=== PATIENT | male | born 1950 | race Caucasian/White ===

== ENCOUNTER 2017-04-17 07:22 | Day surgery (SDC) | payer OTHER ==
[~2017-04-17] VITALS: Ht 170.2 cm; Wt 97.1 kg
[~2017-04-17 07:22] MED LIST: LOVA40 PO
== END 2017-04-17 22:41 | disposition home or self-care (01) ==
LOC: ORSCMMR 07:22
PROVIDERS: Internal Medicine Gastroenterology
PROC: 0DBM8ZX Excision of Descending Colon, Via Natural or Artificial Opening Endoscopic, Diagnostic (ICD-10-PCS; principal; 2017-04-17 08:30)
PROC: 0DBN8ZX Excision of Sigmoid Colon, Via Natural or Artificial Opening Endoscopic, Diagnostic (ICD-10-PCS; principal; 2017-04-17 08:30)
DX: Z12.11 Encounter for screening for malignant neoplasm of colon (principal); D12.5 Benign neoplasm of sigmoid colon; K63.5 Polyp of colon; E78.00 Pure hypercholesterolemia, unspecified; Z79.899 Other long term (current) drug therapy
CPT/HCPCS: 88305; J7120